=== PATIENT | female | born 1995 ===

== ENCOUNTER 2016-09-03 13:13 | Emergency (ER) | payer BC ==
[2016-09-03 14:56] VITALS: BP 122/69
--- NOTE | 2016-09-03 15:14 | UC ---
Hand/Wrist HPI - HPI Summary HPI Summary: Stranger's dog approached pt's service dog and got in a fight, pt put her hand down to protect her dog, she sustained minor bite wounds on her L dorsal 3rd and 4th fingers. Last Tdap in 2011, [facility] aware and searching for dog/excellence manager. - History Of Current Complaint Chief Complaint: UC Stated Complaint: DOG BITE Time Seen by Provider: 09/03/16 14:54 Hx Obtained From: Patient Hx Last Menstrual Period: 08/19/16 ?: No Onset/Duration: Sudden Onset Severity Initially: Mild Severity Currently: Mild Character Of Pain: Dull Aggravating Factor(s): Movement Alleviating: Nothing Associated Signs And Symptoms: Positive: Negative - Allergies/Home Medications Allergies/Adverse Reactions: Allergies Allergy/AdvReac Type Severity Reaction Status Date / Time No Known Allergies Allergy Unverified 06/13/12 15:37 PMH/Surg Hx/FS Hx/Imm Hx Previously Healthy: Yes - Surgical History Surgical History: None - Family History Known Family History: Negative: Blood Disorder - Social History Alcohol Use: Rare Substance Use Type: None Smoking Status (MU): Never Smoked Tobacco - Immunization History Most Recent Influenza Vaccination: fall 2015 Most Recent Tetanus Shot: 2011 Review of Systems Constitutional: Negative Skin: Other - dog bites Eyes: Negative ENT: Negative Respiratory: Negative Cardiovascular: Negative Gastrointestinal: Negative Genitourinary: Negative Motor: Negative Neurovascular: Negative Musculoskeletal: Negative Neurological: Negative Psychological: Negative All Other Systems Reviewed And Are Negative: Yes Physical Exam Triage Information Reviewed: Yes Appearance: Well-Appearing, No Pain Distress, Well-Nourished Vital Signs: Initial Vital Signs Temp 97.7 F 09/03/16 14:51 Pulse 77 09/03/16 14:51 Resp 16 09/03/16 14:51 BP 122/69 09/03/16 14:51 Pulse Ox 98 09/03/16 14:51 Vital Signs Reviewed: Yes Eye Exam: Normal Eyes: Positive: Conjunctiva Clear ENT Exam: Normal ENT: Positive: Normal ENT inspection, Hearing grossly normal, Pharynx normal, TMs normal Dental Exam: Normal Neck exam: Normal Respiratory Exam: Normal Respiratory: Positive: Chest non-tender, Lungs clear, Normal breath sounds, No respiratory distress, No accessory muscle use Cardiovascular Exam: Normal Cardiovascular: Positive: RRR, No Murmur Musculoskeletal Exam: Other Musculoskeletal: Positive: Strength Intact, ROM Intact Neurological Exam: Normal Psychological Exam: Normal Skin Exam: Other - abrasion on L 3rd PIP joint, PW to L 4th dorsal finger between PIP and MCP joints. Full ROM bilat. Hand/Wrist Course/Dx - Differential Dx/Diagnosis Provider Diagnoses: L hand dog bites, superficial, no repair Discharge - Discharge Plan Condition: Stable Disposition: HOME Prescriptions: Amoxicillin/Clavulanate TAB* [Augmentin TAB 875*] 875 mg PO BID #10 tab Patient Education Materials: Animal Bite (ED) Referrals: Theodore Whitten MD [Primary Care Provider] - Additional Instructions: You do not show signs of infection or tendon injury now; if you have severe redness, sudden increase in pain, or inability to move your finger please get seen again in the emergency department.
== END 2016-09-03 15:32 | disposition home or self-care (01) ==
LOC: UCEAST 13:13
DX: S61.233A Puncture wound without foreign body of left middle finger without damage to nail, initial encounter (principal); S61.235A Puncture wound without foreign body of left ring finger without damage to nail, initial encounter; S60.413A Abrasion of left middle finger, initial encounter; S60.415A Abrasion of left ring finger, initial encounter; W54.0XXA Bitten by dog, initial encounter; Y93.89 Activity, other specified; Y92.9 Unspecified place or not applicable
CPT/HCPCS: 99202; G0463

== ENCOUNTER 2016-09-14 16:00 | Emergency (ER) | payer BC ==
[2016-09-14 16:30] VITALS: BP 117/71
[2016-09-14] MEDS ORDERED: Rabies Immune Globulin 10 ML* 150 UNIT/ML VIAL ONE ×2 (17:13→17:14)
[2016-09-14] MEDS ORDERED: Rabies Immune Globulin 2 ML* 150 UNITS/ML VIAL ONE ×2 (17:13→17:14)
[2016-09-14] MEDS ORDERED: Rabies Vaccine (RabAvert)* 2.5 UNITS VIAL ONE (17:13)
[2016-09-17] MEDS ORDERED: Rabies Immune Globulin 10 ML* 150 UNIT/ML VIAL ONE (13:00)
--- NOTE | 2016-09-24 14:32 | UC ---
Alberta Ho SooYoung, scribed for Yenni Landa MD on 09/14/16 at 1703 . Bite Injury/Animal HPI - HPI Summary HPI Summary: A 21 y/o F presents to [facility] post dog bite on 09/03/2016. She is at [facility] today for rabies prophylaxis. Pt was walking her dog and walked past another man with dogs. The dog bit her dog, and she went to pull the dog off, and the dog grazed her index and middle finger, breaking skin. The dog was not found, rabies status unknown. She's been in contact with the Health Department since the incident. She states feeling healthy otherwise. Pt was seen at [facility] on day of incident, was given and completed ABX course yesterday. Pt works at [employer] (formerly [employer]). Her tetanus is UTD. LNMP approx 3 weeks ago. - History of Current Complaint Chief Complaint: UCGeneralIllness Stated Complaint: RABIES Hx Obtained From: Patient Hx Last Menstrual Period: 3 WEEKS AGO Severity Currently: None Pain Intensity: 0 Pain Scale Used: 0-10 Numeric Type of Bite: Animal - dog Has Animal Been Immunized?: Unknown - Allergies/Home Medications Allergies/Adverse Reactions: Allergies Allergy/AdvReac Type Severity Reaction Status Date / Time No Known Allergies Allergy Verified 09/14/16 16:30 Home Medications: Home Medications Control* 09/14/16 [History] PMH/Surg Hx/FS Hx/Imm Hx Previously Healthy: Yes - Surgical History Surgical History: Yes Surgery Procedure, Year, and Place: EYE SURGERY - Family History Known Family History: Positive: Other - BREAST CA - mother Negative: Blood Disorder - Social History Alcohol Use: Rare Substance Use Type: None Smoking Status (MU): Never Smoked Tobacco - Immunization History Most Recent Influenza Vaccination: fall 2015 Most Recent Tetanus Shot: 2011 Review of Systems Constitutional: Negative Skin: Other - dog bite to L index and middle finger Eyes: Negative ENT: Negative Respiratory: Negative Cardiovascular: Negative Gastrointestinal: Negative Genitourinary: Negative Motor: Negative Neurovascular: Negative Musculoskeletal: Other: - see hpi Neurological: Negative Psychological: Negative All Other Systems Reviewed And Are Negative: Yes Physical Exam Triage Information Reviewed: Yes Vital Signs: Initial Vital Signs Temp 98.7 F 09/14/16 16:27 Pulse 67 09/14/16 16:27 Resp 16 09/14/16 16:27 BP 117/71 09/14/16 16:27 Vital Signs Reviewed: Yes Eye Exam: Normal ENT Exam: Normal Neck exam: Normal Respiratory Exam: Normal Cardiovascular Exam: Normal Abdominal Exam: Normal Musculoskeletal Exam: Normal Neurological Exam: Normal Psychological Exam: Normal Skin Exam: Other - dorsal index and middle finger left hand with partial ( although may have extended earlier to full) thickness bites, they are developing eschars. Mild redness, no deacon cellulitis or wound infection noted. FROM c/r good - Additional Comments Appearance: Well-Nourished Eye Exam: Normal ENT Exam: Normal Neck exam: Normal, no adenopathy appreciated Respiratory Exam: Normal, no dyspnea, no tachypnea, normal respiratory rate Cardiovascular Exam: Normal Cardiovascular: Heart rate regular, good general skin color, ulnar pulses good, good capillary refill less than 2 sec Only if she checked: RRR, No Murmur, Pulses Normal - sitting up. heart rate correlates w left radial pulse (if relevant), Brisk Capillary Refill Abdominal Exam: Normal Abdomen Description: Nontender, No organomegaly, Soft Bowel Sounds: Present Musculoskeletal Exam: Normal Musculoskeletal: Strength Intact Neurological Exam: Normal: nonfocal, grossly intact Psychological Exam: Normal: conversing easily and appropriately Skin Exam: L 2ND AND 3RD PHALANGES. 1CM LONG CLOSED WOUND WITH YELLOW ESCHAR CONSISTENT WITH BITES DESCRIBED. NO CELLULITIS, NO PURULENCE, NO DRAINAGE, NO FLUCTUANCE. FROM OF FINGERS, DISTAL SENSATION INTACT. Procedures - Procedure Summary Procedure Summary: Rabies Prophylaxis: Injected 3.6 mL as divided doses (1.8 mL each) at base of 2nd and 3rd fingers as close as logistically possible to wound. RNs gave remaining doses of 10.0 mL. For a total dose of 13.6 mL. See RN notes for details. Bite Injury Course/Dx - Course Course Of Treatment: Reviewed Immun glog rabies (RIG) and Rabies vaccine with pt. She expresses understanding and agreeement. Tet utd. RIG injected per protocol by myself, as close as reasonably possible to the affected areas. R vaccine per RN. Tolerated well. Reviewed f/u. Questions answered as posed. - Differential Dx/Diagnosis Provider Diagnoses: dog bite left hand Discharge - Discharge Plan Condition: Stable Disposition: HOME Patient Education Materials: Rabies Vaccine (By injection), Rabies Immune Globulin (By injection) Referrals: Theodore Whitten MD [Medical Doctor] - Additional Instructions: Follow up with the Health Department - call on Saturday to schedule vaccination series follow up. Follow up with your primary care physician, per routine. The documentation as recorded by the Alberta sotelo SooYoung accurately reflects the service I personally performed and the decisions made by me, Yenni Landa MD.
== END 2016-09-14 18:22 | disposition home or self-care (01) ==
LOC: UCEAST 16:00
DX: S61.231A Puncture wound without foreign body of left index finger without damage to nail, initial encounter (principal); S61.233A Puncture wound without foreign body of left middle finger without damage to nail, initial encounter; W54.0XXA Bitten by dog, initial encounter; Y93.K1 Activity, walking an animal; Y92.9 Unspecified place or not applicable; Z23 Encounter for immunization
CPT/HCPCS: 90375; 90471; 90675; 96372; 99211; G0463